=== PATIENT | female | born 1975 | race Caucasian/White ===

== ENCOUNTER 2016-05-04 14:27 | Emergency (ER) | payer MEDICARE, MEDICAID ==
[~2016-05-04 14:27] MED LIST: ABILIFY30 M1 PO; ATIVAN0.5 M1 PO; BENZTROPINE MESY1 M1 PO; CLOZAPINE100 MG; CLOZAPINE200 MG; CLOZARIL100 M1 PO; CLOZARIL100 MG; COLACE100 M1 PO; FAZACLO; IRON TAB; IRON1 TA1; LAMICTAL100 M2 PO; LAMICTAL25 M2 PO; MELATONIN5 M5 PO; OMEPRAZOLE20 M3 PO; PEPCID20 MG; POTASSIUM CHLO10 ME2 PO; PRENATAL1 TAB; RESTORIL30 M1 PO; STOOL SOFTNER; ZOFRAN4 M2 PO
[2016-05-04 15:04] LABS: BASO % 0.1 % (0-2); EOS % 0.1 % (0-7); HCT-HEMATOCRIT 42.9 % (34.0-49.0); HGB-HEMOGLOBIN 15.1 gm/dl (12.0-15.5); IMMATURE GRANULOCYTES ABSOLUTE 0.01 tho/cmm (0-0.03); IMMATURE GRANULOCYTES PERCENT 0.1 % (0-0.3); LYMPH % 30.5 % (20-45); LYMPH ABSOLUTE COUNT 2.3 tho/cmm (0.8-4.5); MCHC MEAN CORPUSCULAR HGB CONC 35.2 % (32.0-36.0); MCV (MEAN CELL VOLUME) 93.9 fl (82.0-96.0); MEAN PLATELET VOLUME 9.1 cmc (9.4-12.4); MONO % 9.5 % (0-12); MONOCYTE ABSOLUTE COUNT 0.7 tho/cmm (0.0-1.2); NEUTROPHIL ABSOLUTE COUNT 4.5 tho/cmm (1.6-8.0); NEUTROPHIL-AUTOMATED 4.5 tho/cmm (1.6-8.0); NEUTROPHILS % 59.7 % (40-80); PLATELET COUNT 265 tho/cmm (150-450); RED BLOOD COUNT 4.57 mil/cmm (4.00-5.20); RED CELL DISTRIBUTION WIDTH 11.7 % (12.4-16.4); WHITE BLOOD COUNT 7.5 tho/cmm (4.0-10.0)
[2016-05-04 15:25] LABS: ANION GAP 11 mmol/L (0-20); BLOOD UREA NITROGEN 15 mg/dl (6-24); CARBON DIOXIDE-VENOUS 32 mmol/L (22-32); CHLORIDE 97 mmol/l (96-110); CREATININE 0.89 mg/dl (0.50-1.10); GLUCOSE 131 mg/dL (70-110); SODIUM 137 mmol/L (135-145); eGFR VALUE FOR BLACK >90 mL/Min
[2016-05-04 15:29] LABS: POTASSIUM 2.8 mmol/L (3.7-5.1)
[2016-05-04 16:39] LABS: ALB/GLOB RATIO 1.1 (0.8-2.0); ALBUMIN 3.7 g/dl (3.5-5.0); BILIRUBIN,DIRECT 0.1 mg/dl (0.0-0.3); BILIRUBIN,INDIRECT 0.5 mg/dL (0.0-1.0); BILIRUBIN,TOTAL 0.6 mg/dl (0-1.5)
== END 2016-05-04 16:48 ==
LOC: EDMED 14:27
PROVIDERS: Emergency Medicine
DX: E86.0 Dehydration (principal); E87.6 Hypokalemia; F20.9 Schizophrenia, unspecified; Z98.890 Other specified postprocedural states
CPT/HCPCS: J2405; J7030